=== PATIENT | female | born 1950 | race Two or more races ===

== ENCOUNTER 2022-10-31 03:45 | Emergency (ER) | payer OTHER ==
[~2022-10-31] VITALS: Ht 160 cm; Wt 69.4 kg
== END 2022-10-31 04:40 | disposition home or self-care (01) ==
LOC: ER 03:45
DX: S00.03XA Contusion of scalp, initial encounter (principal); W06.XXXA Fall from bed, initial encounter; Y93.9 Activity, unspecified; Y92.230 Patient room in hospital as the place of occurrence of the external cause